=== PATIENT | male | born 1945 | race Caucasian/White ===

== ENCOUNTER → 2021-08-28 | Outpatient (CLI) | payer OTHER, MEDICARE ==
[~2021-08-28] MED LIST: AMLO5 PO; AMLODIPINE PO; LISINOPRIL PO; METO50 PO; NEXIUM 24HR20 MG PO
== END | disposition home or self-care (01) ==
LOC: LAB 14:17 → LAB SHORT 14:17
DX: L02.414 Cutaneous abscess of left upper limb (principal); L57.8 Other skin changes due to chronic exposure to nonionizing radiation; L81.4 Other melanin hyperpigmentation; Z71.89 Other specified counseling
CPT/HCPCS: 87070; 87077; 87147; 87186; 87205

== ENCOUNTER → 2022-03-05 | Outpatient (CLI) | payer OTHER, MEDICARE | END | disposition home or self-care (01) | LOC: LAB SHORT 08:30 | DX: R10.13 Epigastric pain (principal); R11.0 Nausea; R63.4 Abnormal weight loss | CPT/HCPCS: 87338 ==

== ENCOUNTER 2024-01-19 09:09 | Emergency (ER) | payer MEDICARE ==
[~2024-01-19] VITALS: Ht 182.9 cm; Wt 82.1 kg
[2024-01-19 11:03] LABS: BASOPHILS ABSOLUTE AUTO 0.08 K/mm3 (0.00-0.23); BASOPHILS PERCENT AUTO 1 % (0-2); EOSINOPHILS ABSOLUTE AUTO 0.12 K/mm3 (0.00-0.68); EOSINOPHILS PERCENT AUTO 1 % (0-6); Hematocrit 44.4 % (37.0-53.0); Hemoglobin 14.6 g/dL (13.5-17.5); IMMATURE GRAN ABSOLUTE AUTO 0.05 K/mm3 (0.00-0.10); IMMATURE GRAN PERCENT AUTO 1 % (0-1); LYMPHOCYTES ABSOLUTE AUTO 1.37 K/mm3 (0.84-5.20); LYMPHOCYTES PERCENT AUTO 15 % (21-46); MONOCYTES ABSOLUTE AUTO 1.21 K/mm3 (0.16-1.47); MONOCYTES PERCENT AUTO 13 % (4-13); Mean Corpuscular HGB 30.2 pg (26.0-34.0); Mean Corpuscular HGB Conc 32.9 g/dL (31.5-36.5); Mean Corpuscular Volume 92 fL (80-100); NEUTROPHILS ABSOLUTE AUTO 6.25 K/mm3 (1.96-9.15); NEUTROPHILS PERCENT AUTO 69 % (41-73); Platelet Count 258 K/mm3 (150-400); RDW Coefficient Variation 16.1 % (11.7-14.2); Red Blood Cell Count 4.84 M/mm3 (4.30-5.90); White Blood Cell Count 9.08 K/mm3 (4.00-11.30)
[2024-01-19 11:28] LABS: Albumin, Blood 3.1 g/dL (3.4-5.0); Albumin/Globulin Ratio 0.7 (0.8-1.8); Bilirubin, Total 1.9 mg/dL (0.1-1.0); Bun/Creatinine Ratio 20.3 (12.0-20.0); Calcium, Blood 9.9 mg/dL (8.5-10.1); Creatinine, Blood 0.59 mg/dL (0.60-1.20); Globulin, Blood 4.4 g/dL (2.2-4.0); Potassium, Blood 4.3 mmol/L (3.5-5.5); Total Protein, Blood 7.5 g/dL (6.4-8.2)
[2024-01-19] MEDS ORDERED: PAXIL40 M1 PO (12:21)
[2024-01-19 13:50] LABS: Alpha Feto Protein, Tumor Mkr 1.4 ng/mL (0.0-8.0); Carcinoembryonic Antigen 445.8 ng/mL (0.0-3.0)
[2024-01-19] MEDS ORDERED: ONDA4ODT MM (13:56)
[2024-01-19] MEDS ORDERED: OXYC5 PO (13:56)
[2024-01-19 14:08] LABS: Cancer Antigen 19-9 1278.8 U/mL (2.0-37.0)
[2024-01-19 14:12] VITALS: BP 139/103
[2024-01-19 14:12] LABS: International Normalized Ratio 1.07; Prothrombin Time Results 11.4 Sec (9.7-11.5)
== END 2024-01-19 14:10 | disposition home or self-care (01) ==
LOC: ER 09:09
PROVIDERS: Emergency Medicine; Physician Assistant
DX: C78.7 Secondary malignant neoplasm of liver and intrahepatic bile duct (principal); C80.1 Malignant (primary) neoplasm, unspecified; R93.3 Abnormal findings on diagnostic imaging of other parts of digestive tract; Z79.899 Other long term (current) drug therapy; Z87.891 Personal history of nicotine dependence
CPT/HCPCS: 74177; 76705; 80053; 82105; 82378; 83690; 85025; 85610; 86301; 99284-25; Q9967